=== PATIENT | female | born 1980 | race American Indian/Alaskan Native ===

== ENCOUNTER 2019-08-01 00:43 | Inpatient (IN) | payer MEDICARE ==
[2019-08-01 01:41] LABS: Basophils % (Auto) 0.6 % (0.0-1.8); Eosinophils # (Auto) 0.1 K/mm3 (0.0-0.4); Eosinophils % (Auto) 1.8 % (0.0-4.3); Lymphocytes % (Auto) 28.8 % (13.4-35.0); Mean Corpuscular HGB Conc 33 % (30-34); Mean Corpuscular Volume 84 fl (79-97); Monocytes # (Auto) 0.6 K/mm3 (0.0-0.8); Monocytes % (Auto) 8.1 % (0.0-7.3); Platelet Count 267 K/mm3 (140-440); Red Blood Count 2.16 M/mm3 (3.65-5.03); Red Cell Distribution Width 18.7 % (13.2-15.2)
[2019-08-01 01:52] LABS: Hematocrit 18.1 % (30.3-42.9); Hemoglobin 5.9 gm/dl (10.1-14.3)
--- NOTE | 2019-08-01 03:31 | Emergency Department Report ---
ED Female HPI - General Chief complaint: Vaginal Bleeding Stated complaint: GENERAL ILLNESS Time Seen by Provider: 08/01/19 03:04 Source: patient Mode of arrival: Ambulatory Limitations: No Limitations - History of Present Illness Initial comments: This is a 39-year-old -[place] female who presents to the emergency room with menorrhagia for 2 weeks. Patient reports symptoms started 07/19/2019. Past history of insulin-dependent diabetes2, anemia, hypertension, neuropathy, iron deficiency anemia, and hypothyroidism. Primary care doctor Hermila. Patient states she had an appointment with a new onion farmer last week which was rescheduled [place]. Reports feeling lightheaded. Denies abdominal pain MD Complaint: vaginal bleeding Onset/Timin -: week(s) Severity scale (0 -10): 0 Are you Now?: No Last Menstrual Period: 07/19/19 EDC: 04/24/20 Associated Symptoms: denies other symptoms - Related Data Home Medications Medication Instructions Recorded Confirmed Last Taken Atorvastatin (Nf) [Lipitor (Nf)] 20 mg PO QDAY 05/04/13 05/04/13 05/04/13 Levothyroxine [Synthroid] 125 mcg PO QAM 05/04/13 05/04/13 05/04/13 Propranolol LA [Inderal LA] 120 mg PO QDAY 05/04/13 05/04/13 05/04/13 lisinopriL [Zestril] 20 mg PO QDAY 05/04/13 05/04/13 05/04/13 Previous Rx's Medication Instructions Recorded Last Taken Type Insulin Aspart (Nf) [NovoLOG 100 8 unit SUB-Q TID #1 vial 05/04/13 Unknown Rx UNITS/ML VIAL] Insulin Glargine,Hum.rec.anlog 35 unit SUB-Q QHS #30 ml 05/04/13 Unknown Rx [Lantus Solostar] Syrge-Ndl,Ins 0.3 ml Half Hitesh 1 each MC TID #1 box 05/04/13 Unknown Rx [Insulin Syringe] Allergies Allergy/AdvReac Type Severity Reaction Status Date / Time No Known Allergies Allergy Unverified 07/05/15 09:50 ED Review of Systems ROS: Stated complaint: GENERAL ILLNESS Other details as noted in HPI Constitutional: denies: chills, fever Respiratory: denies: cough, shortness of breath, wheezing Cardiovascular: denies: chest pain, palpitations Gastrointestinal: denies: abdominal pain, nausea, diarrhea Genitourinary: abnormal menses. denies: urgency, dysuria, discharge Musculoskeletal: denies: back pain, joint swelling, arthralgia Skin: denies: rash, lesions Neurological: denies: headache, weakness, paresthesias Psychiatric: denies: anxiety, depression ED Past Medical Hx - Past Medical History Previous Medical History?: Yes Hx Hypertension: Yes Hx Diabetes: Yes - Surgical History Past Surgical History?: Yes Additional Surgical History: thyroidectomy - Social History Smoking Status: Never Smoker Substance Use Type: None - Medications Home Medications: Home Medications Medication Instructions Recorded Confirmed Last Taken Type Atorvastatin (Nf) [Lipitor (Nf)] 20 mg PO QDAY 05/04/13 05/04/13 05/04/13 History Insulin Aspart (Nf) [NovoLOG 100 8 unit SUB-Q TID #1 vial 05/04/13 Unknown Rx UNITS/ML VIAL] Insulin Glargine,Hum.rec.anlog 35 unit SUB-Q QHS #30 ml 05/04/13 Unknown Rx [Lantus Solostar] Levothyroxine [Synthroid] 125 mcg PO QAM 05/04/13 05/04/13 05/04/13 History Propranolol LA [Inderal LA] 120 mg PO QDAY 05/04/13 05/04/13 05/04/13 History Syrge-Ndl,Ins 0.3 ml Half Hitesh 1 each MC TID #1 box 05/04/13 Unknown Rx [Insulin Syringe] lisinopriL [Zestril] 20 mg PO QDAY 05/04/13 05/04/13 05/04/13 History ED Physical Exam - General Limitations: No Limitations General appearance: alert, in no apparent distress, obese - Respiratory Respiratory exam: Present: normal lung sounds bilaterally. Absent: respiratory distress - Cardiovascular Cardiovascular Exam: Present: regular rate, normal rhythm. Absent: systolic murmur, diastolic murmur, rubs, gallop - GI/Abdominal GI/Abdominal exam: Present: soft, normal bowel sounds. Absent: distended, tenderness, guarding, rebound, rigid - Neurological Exam Neurological exam: Present: alert, oriented X3 - Psychiatric Psychiatric exam: Present: normal affect, normal mood - Skin Skin exam: Present: warm, dry, intact, normal color. Absent: rash ED Course Vital Signs 08/01/19 08/01/19 00:56 06:19 Temperature 98.2 F Pulse Rate 85 Respiratory 18 18 Rate Blood Pressure 146/80 O2 Sat by Pulse 100 100 Oximetry - Reevaluation(s) Reevaluation #1: 08/01/19 03:[address] Noble regarding anemia and menorrhagia. Request pelvic ultrasound and consult with hospitalist. Suggest a transfusion for anemia. Possible and consult if admitted through medicine. 08/01/19 06:[address] Rooney who agreed to admit patient with [facility] consult to [facility]. ED Medical Decision Making - Lab Data Result diagrams: 08/01/19 01:00 08/01/19 03:59 Lab Results 08/01/19 08/01/19 08/01/19 Range/Units 01:00 01:00 01:00 WBC 7.0 (4.5-11.0) K/mm3 RBC 2.16 L (3.65-5.03) M/mm3 Hgb 5.9 L* (10.1-14.3) gm/dl Hct 18.1 L* (30.3-42.9) % MCV 84 (79-97) fl MCH 27 L (28-32) pg MCHC 33 (30-34) % RDW 18.7 H (13.2-15.2) % Plt Count 267 (140-440) K/mm3 Lymph % (Auto) 28.8 (13.4-35.0) % Stephens % (Auto) 8.1 H (0.0-7.3) % Eos % (Auto) 1.8 (0.0-4.3) % Baso % (Auto) 0.6 (0.0-1.8) % Lymph # 2.0 (1.2-5.4) K/mm3 Stephens # 0.6 (0.0-0.8) K/mm3 Eos # 0.1 (0.0-0.4) K/mm3 Baso # 0.0 (0.0-0.1) K/mm3 Seg Neutrophils % 60.7 (40.0-70.0) % Seg Neutrophils # 4.3 (1.8-7.7) K/mm3 Sodium (137-145) mmol/L Potassium (3.6-5.0) mmol/L Chloride (98-107) mmol/L Carbon Dioxide (22-30) mmol/L Anion Gap mmol/L BUN (7-17) mg/dL Creatinine (0.7-1.2) mg/dL Estimated GFR ml/min BUN/Creatinine Ratio % Glucose (65-100) mg/dL Calcium (8.4-10.2) mg/dL HCG, Qual Negative (Negative) HCG, Quant < 2 (0-4) mIU/mL Urine Color (Yellow) Urine Turbidity (Clear) Urine pH (5.0-7.0) Ur Specific [place] (1.003-1.030) Urine Protein (Negative) mg/dL Urine Glucose (UA) (Negative) mg/dL Urine Ketones (Negative) mg/dL Urine Blood (Negative) Urine Nitrite (Negative) Urine Bilirubin (Negative) Urine Urobilinogen (<2.0) mg/dL Ur Leukocyte Esterase (Negative) Urine WBC (Auto) (0.0-6.0) /HPF Urine RBC (Auto) (0.0-6.0) /HPF U Epithel Cells (Auto) (0-13.0) /HPF Urine Bacteria (Auto) (Negative) /HPF Urine Mucus /HPF Blood Type 08/01/19 08/01/19 08/01/19 Range/Units 01:00 03:59 Unknown WBC (4.5-11.0) K/mm3 RBC (3.65-5.03) M/mm3 Hgb (10.1-14.3) gm/dl Hct (30.3-42.9) % MCV (79-97) fl MCH (28-32) pg MCHC (30-34) % RDW (13.2-15.2) % Plt Count (140-440) K/mm3 Lymph % (Auto) (13.4-35.0) % Stephens % (Auto) (0.0-7.3) % Eos % (Auto) (0.0-4.3) % Baso % (Auto) (0.0-1.8) % Lymph # (1.2-5.4) K/mm3 Stephens # (0.0-0.8) K/mm3 Eos # (0.0-0.4) K/mm3 Baso # (0.0-0.1) K/mm3 Seg Neutrophils % (40.0-70.0) % Seg Neutrophils # (1.8-7.7) K/mm3 Sodium 138 (137-145) mmol/L Potassium 3.8 (3.6-5.0) mmol/L Chloride 99.4 (98-107) mmol/L Carbon Dioxide 23 (22-30) mmol/L Anion Gap 19 mmol/L BUN 10 (7-17) mg/dL Creatinine 0.8 (0.7-1.2) mg/dL Estimated GFR > 60 ml/min BUN/Creatinine Ratio 13 % Glucose 181 H (65-100) mg/dL Calcium 8.9 (8.4-10.2) mg/dL HCG, Qual (Negative) HCG, Quant (0-4) mIU/mL Urine Color Red (Yellow) Urine Turbidity Slightly-cloudy (Clear) Urine pH 6.0 (5.0-7.0) Ur Specific [place] 1.005 (1.003-1.030) Urine Protein 100 mg/dl (Negative) mg/dL Urine Glucose (UA) Neg (Negative) mg/dL Urine Ketones Tr (Negative) mg/dL Urine Blood Mod (Negative) Urine Nitrite Neg (Negative) Urine Bilirubin Neg (Negative) Urine Urobilinogen < 2.0 (<2.0) mg/dL Ur Leukocyte Esterase Sm (Negative) Urine WBC (Auto) 5.0 (0.0-6.0) /HPF Urine RBC (Auto) 96.0 (0.0-6.0) /HPF U Epithel Cells (Auto) 3.0 (0-13.0) /HPF Urine Bacteria (Auto) 1+ (Negative) /HPF Urine Mucus Few /HPF Blood Type O POSITIVE - Radiology Data Radiology results: report reviewed CLINICAL DATA: menorrhagia TECHNICAL DATA: Ultrasound, pelvic (nonobstetric), real-time with image documentation; transabdominal and transvaginal imaging with Doppler was performed. Doppler imaging demonstrates normal arterial and venous flow. FINDINGS: The uterus demonstrates multiple uterine fibroids present largest measuring 3.1 cm. Endometrium is thickened measuring 1.4 cm The right and left ovaries are of symmetric size and echogenicity. Doppler imaging is identified in both adnexa. There are no ovarian or adnexal masses. Multiple right ovarian cyst are present largest measuring 2.5 cm There is no significant quantity of free fluid dependently within the pelvis. IMPRESSION: 1. Multiple uterine fibroids 2. Ovarian cyst on the right GUIDELINES FOR IMAGING OF OVARIAN--ADNEXAL CYST: WOMEN OF REPRODUCTIVE AGE: 1. Cysts <=3 cm: Normal physiologic findings; at the discretion of the interpre ting physician whether or not to describe them in the imaging report; do not need follow-up. 2. Cysts >3 and <=5 cm: Should be described in the imaging report with a statement that they are almost certainly benign; do not need follow-up. 3. Cysts >5 and <=7 cm: Should be described in the imaging report with a statement that they are almost certainly benign; yearly follow-up with US recommended. 4. Cysts >7 cm: Since these may be difficult to assess completely with US, further imaging with magnetic resonance (MR) or surgical evaluation should be considered. POSTMENOPAUSAL WOMEN: 1. Cysts <=1 cm: Are clinically inconsequential; at the discretion of the interpreting physician whether or not to describe them in the imaging report; do not need follow-up. 2. Cysts >1 and <=7 cm: Should be described in the imaging report with statement that they are almost certainly benign; yearly follow-up, at least initially, with US recommended. Some practices may opt to increase the lower size threshold for follow-up from 1 cm to as high as 3 cm. One may opt to continue follow-up annually or to decrease the frequency of follow-up once stability or decrease in size has been confirmed. Cysts in the larger end of this range should still generally be followed on a regular basis. 3. Cysts >7 cm: Since these may be difficult to assess completely with US, further imaging with MR or surgical evaluation should be considered. - Medical Decision Making Patient was examined by me. Vitals are stable. Nontender on abdominal exam. Ultrasound of pelvic pain and labs obtained. Anemia findings on labs. Consulted attending. IV site obtained an order 1 unit of red blood cells. Ultrasound dictated by radiologist with the following findings Multiple uterine fibroids. Ovarian cyst on the right. Consulted [facility] and hospitalists. Hospitalists agreed to admit patient to the [facility] with consult to [facility]. Critical care attestation.: If time is entered above; I have spent that time in minutes in the direct care of this critically ill patient, excluding procedure time. ED Disposition Clinical Impression: Menorrhagia Qualifiers: Menorrahagia type: with onset of menstrual periods Qualified Code(s): N92.2 - Excessive menstruation at puberty Uterine fibroid Qualifiers: Uterine leiomyoma location: unspecified location Qualified Code(s): D25.9 - Leiomyoma of uterus, unspecified Anemia Qualifiers: Anemia type: unspecified type Qualified Code(s): D64.9 - Anemia, unspecified Disposition: -09 OP ADMIT IP TO THIS HOSP Is pt being admited?: Yes Condition: Stable Referrals: PRIMARY CARE, [Primary Care Provider] - 3-5 Days
[2019-08-01 04:30] LABS: BUN/Creatinine Ratio 13; Blood Urea Nitrogen 10 mg/dL (7-17); Calcium 8.9 mg/dL (8.4-10.2); Hemolysis Index 2
[2019-08-01 04:30] LABS: Bacteria,Urine 1+ /HPF (Negative); Bilirubin,Urine NEG (Negative); Blood,Urine MOD (Negative); Color,Urine Red (Yellow); Mucus,Urine FEW /HPF; Urobilinogen,Urine < 2.0 mg/dL (<2.0)
[2019-08-01] MEDS ORDERED: SODIUM CHLORIDE 0.9% 500 ML 500 ML IV ONE ×2 (05:57→10:00)
--- NOTE | 2019-08-01 06:08 | Ultrasound Report ---
CLINICAL DATA: menorrhagia TECHNICAL DATA: Ultrasound, pelvic (nonobstetric), real-time with image documentation; transabdominal and transvagina l imaging with Doppler was performed. Doppler imaging demonstrates normal arterial and venous flow. FINDINGS: The uterus demonstrates multiple uterine fibroids present largest measuring 3.1 cm. Endometrium is th ickened measuring 1.4 cm The right and left ovaries are of symmetric size and echogenicity. Doppler imaging is identified in both adnexa. There are no ovarian or adnexal masses. Multiple right ovarian cyst are present largest measuring 2.5 cm There is no significant quantity of free fluid dependently within the pelvis. IMPRESSION: 1. Multiple uterine fibroids 2. Ovarian cyst on the right WOMEN OF REPRODUCTIVE AGE: 1. Cysts 3 cm: Normal physiologic findings; at the discretion of the interpreting physician whether o r not to describe them in the imaging report; do not need follow-up. 2. Cysts >3 and 5 cm: Should be described in the imaging report with a statement that they are almost certainly benign; do not need follow-up. 3. Cysts >5 and 7 cm: Should be described in the imaging report with a statement that they are almost certainly benign; yearly follow-up with US recommended. 4. Cysts >7 cm: Since these may be difficult to assess completely with US, further imaging with magne tic resonance (MR) or surgical evaluation should be considered. POSTMENOPAUSAL WOMEN: 1. Cysts 1 cm: Are clinically inconsequential; at the discretion of the interpreting physician whethe r or not to describe them in the imaging report; do not need follow-up. 2. Cysts >1 and 7 cm: Should be described in the imaging report with statement that they are almost c ertainly benign; yearly follow-up, at least initially, with US recommended. Some practices may opt to increase the lower size threshold for follow-up from 1 cm to as high as 3 cm. One may opt to continu e follow-up annually or to decrease the frequency of follow-up once stability or decrease in size has been confirmed. Cysts in the larger end of this range should still generally be followed on a regula r basis. 3. Cysts >7 cm: Since these may be difficult to assess completely with US, further imaging with MR or surgical evaluation should be considered.. Signer Name: Andrea Perez MD Signed: 08/01/2019 6:03 AM Workstation Name: [id number]
--- NOTE | 2019-08-01 06:09 | Ultrasound Report ---
CLINICAL DATA: menorrhagia TECHNICAL DATA: Ultrasound, pelvic (nonobstetric), real-time with image documentation; transabdominal and transvagina l imaging with Doppler was performed. Doppler imaging demonstrates normal arterial and venous flow. FINDINGS: The uterus demonstrates multiple uterine fibroids present largest measuring 3.1 cm. Endometrium is th ickened measuring 1.4 cm The right and left ovaries are of symmetric size and echogenicity. Doppler imaging is identified in both adnexa. There are no ovarian or adnexal masses. Multiple right ovarian cyst are present largest measuring 2.5 cm There is no significant quantity of free fluid dependently within the pelvis. IMPRESSION: 1. Multiple uterine fibroids 2. Ovarian cyst on the right GUIDELINES FOR IMAGING OF OVARIAN--ADNEXAL CYST: WOMEN OF REPRODUCTIVE AGE: 1. Cysts <=3 cm: Normal physiologic findings; at the discretion of the interpreting physician whether or not to describe them in the imaging report; do not need follow-up. 2. Cysts >3 and <=5 cm: Should be described in the imaging report with a statement that they are almo st certainly benign; do not need follow-up. 3. Cysts >5 and <=7 cm: Should be described in the imaging report with a statement that they are almo st certainly benign; yearly follow-up with US recommended. 4. Cysts >7 cm: Since these may be difficult to assess completely with US, further imaging with magne tic resonance (MR) or surgical evaluation should be considered. POSTMENOPAUSAL WOMEN: 1. Cysts <=1 cm: Are clinically inconsequential; at the discretion of the interpreting physician whet her or not to describe them in the imaging report; do not need follow-up. 2. Cysts >1 and <=7 cm: Should be described in the imaging report with statement that they are almost certainly benign; yearly follow-up, at least initially, with US recommended. Some practices may opt to increase the lower size threshold for follow-up from 1 cm to as high as 3 cm. One may opt to annia nue follow-up annually or to decrease the frequency of follow-up once stability or decrease in size h as been confirmed. Cysts in the larger end of this range should still generally be followed on a regu lar basis. 3. Cysts >7 cm: Since these may be difficult to assess completely with US, further imaging with MR or surgical evaluation should be considered. Signer Name: Andrea Perez MD Signed: 08/01/2019 6:04 AM Workstation Name: [id number]
[2019-08-01] MEDS ORDERED: ONDANSETRON 4 MG/2 ML INJ IV PRN (06:24)
--- NOTE | 2019-08-01 09:59 | Consultation ---
History of Present Illness Consult date: 08/01/19 Requesting physician: FRIDA LUGO Reason for consult: menorrhagia History of present illness: Pt is a 39 year old female nulligravida LMP 07/19/19 who presents with heavy vaginal bleeding for 13 days as well as lightheadedness and fatigue. She reports that she has heavy menses, but she had no menses in June prior to the current prolonged menses. She has not been evaluated by a office supervisor in over 10 years, and has not had a pap smear during that interval. The patient does not desire future fertility. Past History Past Medical History: hypertension, diabetes (insulin dependent with neuropathy ), high cholesterol, thyroid disease (hypothyroidism ), hematologic disorders (anemia, non-compliant with iron supplementation ) Past Surgical History: thyroid (ablation ) Family/Genetic History: heart disease Social history: no significant social history - Obstetrical History : 0 Medications and Allergies Allergies Allergy/AdvReac Type Severity Reaction Status Date / Time No Known Allergies Allergy Verified 08/01/19 06:43 Home Medications Medication Instructions Recorded Confirmed Last Taken Type Atorvastatin (Nf) [Lipitor (Nf)] 20 mg PO QDAY 05/04/13 08/01/19 05/04/13 History Levothyroxine [Synthroid] 137 mcg PO QAM 05/04/13 08/01/19 05/04/13 History Basaglar Kwikpen U-100 50 unit SQ DAILY 08/01/19 08/01/19 Unknown History Ferrous Sulfate 325 mg PO BID 08/01/19 08/01/19 Unknown History Gabapentin 300 mg PO BID 08/01/19 08/01/19 Unknown History Lisinopril/Hydrochlorothiazide 1 tab PO DAILY 08/01/19 08/01/19 Unknown History Metformin HCl 1,000 mg PO BID 08/01/19 08/01/19 Unknown History NovoLOG 100 UNITS/ML VIAL 15 unit SQ TID 08/01/19 08/01/19 Unknown History Propranolol 120 mg PO DAILY 08/01/19 08/01/19 Unknown History Active Meds: Active Medications Acetaminophen (Tylenol) 650 mg PO Q4H PRN PRN Reason: Pain MILD(1-3)/Fever >100.5/MAGANA Ondansetron HCl (Zofran) 4 mg IV Q8H PRN PRN Reason: Nausea And Vomiting Sodium Chloride (Sodium Chloride Flush Syringe 10 Ml) 10 ml IV BID FRANKO Sodium Chloride (Sodium Chloride Flush Syringe 10 Ml) 10 ml IV PRN PRN PRN Reason: LINE FLUSH Review of Systems All systems: negative - Vital Signs Vital signs: Vital Signs Temp Pulse Resp BP Pulse Ox 98.2 F 85 18 146/80 100 08/01/19 00:56 08/01/19 00:56 08/01/19 00:56 08/01/19 00:56 08/01/19 00:56 Temp Pulse Resp BP Pulse Ox 98.2 F 78 16 131/67 100 08/01/19 00:56 08/01/19 06:36 08/01/19 06:36 08/01/19 06:36 08/01/19 06:36 - Physical Exam Breasts: Positive: deferred Cardiovascular: Regular rate Lungs: Positive: Clear to auscultation Abdomen: Positive: soft (obese) Vulva: both: normal Vagina: Positive: other (moderate blood in vaginal vault with some dime sized clots ) Cervix: Positive: other (difficult to visualize secondary to bleeding ) Uterus: Positive: normal size Extremities: Positive: normal Results Result Diagrams: 08/01/19 01:00 08/01/19 03:59 Abnormal lab results 08/01/19 08/01/19 08/01/19 Range/Units 01:00 03:59 06:45 RBC 2.16 L (3.65-5.03) M/mm3 Hgb 5.9 L* (10.1-14.3) gm/dl Hct 18.1 L* (30.3-42.9) % MCH 27 L (28-32) pg RDW 18.7 H (13.2-15.2) % [place] % (Auto) 8.1 H (0.0-7.3) % Glucose 181 H (65-100) mg/dL Crossmatch See Detail All other labs normal. Ultrasound: report reviewed Assessment and Plan A: Symptomatic Anemia Dysfunctional Uterine Bleeding Fibroid Uterus Undesired Fertility Insulin-Dependent Diabetes Mellitus Hypothyroidism Hypercholesterolemia P: Transfuse 2 units PRBCs and recheck hemoglobin and hematocrit IV Premarin 25mg IV Q6H until bleeding is minimal Scheduled outpatient follow up in the next 2 weeks for pap smear, endometrial biopsy, and begin hysterectomy planning.
[2019-08-01] MEDS ORDERED: DEXTROSE 50% IN WATER (25GM) 50 ML SYRINGE IV PRN (11:17)
[2019-08-01] MEDS ORDERED: INSULIN LISPRO 100 UNIT/ML SUB-Q SCH (11:30)
[2019-08-01] MEDS: INSULIN LISPRO 100 UNIT/ML SUB-Q SCH ×3 (11:37→22:31)
[2019-08-01] MEDS: ACETAMINOPHEN 325 MG TAB PO PRN (11:39)
[2019-08-01] MEDS ORDERED: WATER FOR INJ Sterile (PF) 10 ML ONE ×2 (11:54→17:20)
[2019-08-01] MEDS: ESTROGENS, CONJUGATED 25 MG INJ IV SCH ×2 (11:55→18:38)
--- NOTE | 2019-08-01 12:55 | Consultation ---
History of Present Illness - Reason for Consult Consult date: 08/01/19 Diabetes Requesting physician: MIKE HUITRON - History of Present Illness 39-year-old female with obesity hypoventilation syndrome, diabetes mellitus, consult placed by Dr. Wiley Huitron for diabetes mellitus. Patient seen and evaluated in her room. Patient denies fever, chills, chest pain, palpitations, shortness of breath, polydipsia, polyuria, or polyphagia. No reported nursing events. Past History Past Medical History: diabetes, hypertension Past Surgical History: thyroidectomy Social history: single Family history: diabetes, hypertension Medications and Allergies Allergies Allergy/AdvReac Type Severity Reaction Status Date / Time No Known Allergies Allergy Verified 08/01/19 06:43 Home Medications Medication Instructions Recorded Confirmed Last Taken Type Atorvastatin (Nf) [Lipitor (Nf)] 20 mg PO QDAY 05/04/13 08/01/19 05/04/13 History Levothyroxine [Synthroid] 137 mcg PO QAM 05/04/13 08/01/19 05/04/13 History Basaglar Kwikpen U-100 50 unit SQ DAILY 08/01/19 08/01/19 Unknown History Ferrous Sulfate 325 mg PO BID 08/01/19 08/01/19 Unknown History Gabapentin 300 mg PO BID 08/01/19 08/01/19 Unknown History Lisinopril/Hydrochlorothiazide 1 tab PO DAILY 08/01/19 08/01/19 Unknown History Metformin HCl 1,000 mg PO BID 08/01/19 08/01/19 Unknown History NovoLOG 100 UNITS/ML VIAL 15 unit SQ TID 08/01/19 08/01/19 Unknown History Propranolol 120 mg PO DAILY 08/01/19 08/01/19 Unknown History Active Meds: Active Medications Acetaminophen (Tylenol) 650 mg PO Q4H PRN PRN Reason: Pain MILD(1-3)/Fever >100.5/MAGANA Last Admin: 08/01/19 11:39 Dose: 650 mg Documented by: Dextrose (D50w (25gm) Syringe) 50 ml IV Q30MIN PRN; Protocol PRN Reason: Hypoglycemia Insulin Human Lispro (Humalog) 0 unit SUB-Q ACHS [facility]; Protocol Last Admin: 08/01/19 11:37 Dose: 3 unit Documented by: Ondansetron HCl (Zofran) 4 mg IV Q8H PRN PRN Reason: Nausea And Vomiting Sodium Chloride (Sodium Chloride Flush Syringe 10 Ml) 10 ml IV BID FRANKO Sodium Chloride (Sodium Chloride Flush Syringe 10 Ml) 10 ml IV PRN PRN PRN Reason: LINE FLUSH Review of Systems Constitutional: no weight loss, no fever Ears, nose, mouth and throat: no ear pain, no tinnitis, no nose pain, no nasal discharge Cardiovascular: no chest pain, no palpitations, no rapid/irregular heart beat, no syncope Respiratory: no cough, no cough with sputum, no hemoptysis, no dyspnea on exertion Gastrointestinal: no nausea, no diarrhea, no constipation, no coffee ground emesis Genitourinary Female: no pelvic pain, no flank pain Rectal: no pain, no incontinence, no bleeding Musculoskeletal: no neck stiffness, no shooting arm pain, no arm numbness/tingling, no shooting leg pain, no leg numbness/tingling Integumentary: no rash, no pruritis, no sores, no wounds, no boils Neurological: no transient paralysis, no parathesias, no numbness, no tingling, no seizures, no syncope Psychiatric: no anxiety, no change in sleep habits, no sleep disturbances, no hypersomnia, no change in appetite Endocrine: no cold intolerance, no heat intolerance, no excessive thirst, no polyuria, no nocturia, no flushing, no weight change Hematologic/Lymphatic: no easy bruising, no lymphadenopathy Allergic/Immunologic: no allergic rhinitis, no wheezing, no persistent infections, no anaphylaxis Exam - Constitutional Vitals: Temp Pulse Resp BP Pulse Ox 97.7 F 71 16 139/81 100 08/01/19 10:10 08/01/19 10:10 08/01/19 10:10 08/01/19 10:10 08/01/19 10:10 General appearance: Present: mild distress - EENT Eyes: Present: PERRL ENT: hearing intact, clear oral mucosa - Neck Neck: Present: supple, normal ROM - Respiratory Respiratory effort: normal Respiratory: bilateral: CTA - Cardiovascular Heart Sounds: Present: S1 & S2. Absent: rub, click - Extremities Extremities: pulses symmetrical, No edema Peripheral Pulses: within normal limits - Abdominal General gastrointestinal: Present: soft, non-tender, non-distended, normal bowel sounds Female genitourinary: Present: normal - Integumentary Integumentary: Present: clear, warm, dry - Musculoskeletal Musculoskeletal: gait normal, strength equal bilaterally - Psychiatric Psychiatric: appropriate mood/affect, intact judgment & insight - Neurologic Neurologic: CNII-XII intact, moves all extremities Results - Labs CBC & Chem 7: 08/01/19 01:00 08/01/19 03:59 Labs: Abnormal lab results 08/01/19 08/01/19 08/01/19 Range/Units 01:00 03:59 06:45 RBC 2.16 L (3.65-5.03) M/mm3 Hgb 5.9 L* (10.1-14.3) gm/dl Hct 18.1 L* (30.3-42.9) % MCH 27 L (28-32) pg RDW 18.7 H (13.2-15.2) % Crosby % (Auto) 8.1 H (0.0-7.3) % Glucose 181 H (65-100) mg/dL POC Glucose (70-105) Crossmatch See Detail 08/01/19 Range/Units 10:54 RBC (3.65-5.03) M/mm3 Hgb (10.1-14.3) gm/dl Hct (30.3-42.9) % MCH (28-32) pg RDW (13.2-15.2) % Crosby % (Auto) (0.0-7.3) % Glucose (65-100) mg/dL POC Glucose 298 H (70-105) Crossmatch Assessment and Plan - Patient Problems (1) Diabetes Current Visit: Yes Status: Acute Plan to address problem: ADA diet, insulin sliding scale, Accu-Chek, hypoglycemia protocol, hold metformin while hospitalized. Resume prehospital antihyperglycemic regimen upon discharge. Follow-up with PCP within 3 to 5 days of discharge for re evaluation.
[2019-08-01 23:08] LABS: Hematocrit 23.8 % (30.3-42.9); Hemoglobin 8.1 gm/dl (10.1-14.3)
[2019-08-02] MEDS: ACETAMINOPHEN 325 MG TAB PO PRN (05:07)
[2019-08-02] MEDS: INSULIN LISPRO 100 UNIT/ML SUB-Q SCH ×3 (08:14→16:10)
--- NOTE | 2019-08-02 08:34 | Event Note ---
Date: 08/02/19 Cleared for discharge Patient maybe discharged on 1. Glimepiride 2 mg once a day 2. Metformin 500 mg twice a day
[2019-08-02] MEDS ORDERED: GLIMEPIRIDE 2 MG TAB PO SCH (09:00)
--- NOTE | 2019-08-02 10:33 | Progress Note ---
Assessment and Plan A/P Menorrhagia, DUB A: Symptomatic Anemia Dysfunctional Uterine Bleeding Fibroid Uterus Undesired Fertility Insulin-Dependent Diabetes Mellitus Hypothyroidism Hypercholesterolemia P: Transfuse 2 units PRBCs and recheck hemoglobin and hematocrit IV Premarin 25mg IV Q6H until bleeding is minimal Scheduled outpatient follow up in the next 2 weeks for pap smear, endometrial biopsy, and begin hysterectomy planning. Appreciate Medicine consult Discharged home today possible Subjective - Subjective Date of service: 08/02/19 Principal diagnosis: menorrhagia, fibroids Patient reports: appetite normal, voiding normally, pain well controlled, flatus, ambulating normally Objective - Vital Signs Latest vital signs: Vital Signs Temp Pulse Resp BP BP Pulse Ox 08/02/19 08:23 97.7 F 82 18 140/63 98 08/02/19 05:01 98.6 F 88 20 118/67 98 08/02/19 01:09 98.3 F 81 18 127/71 99 08/01/19 21:07 97.7 F 76 16 109/63 100 08/01/19 18:35 97.7 F 74 16 124/73 100 08/01/19 17:16 97.8 F 69 18 135/76 100 08/01/19 16:09 97.7 F 77 16 131/69 100 08/01/19 16:03 97.6 F 68 18 125/72 100 08/01/19 14:41 97.7 F 67 18 131/67 100 08/01/19 14:11 97.7 F 77 16 119/66 100 08/01/19 13:41 97.6 F 76 18 119/68 100 08/01/19 13:26 97.6 F 66 16 114/67 08/01/19 12:55 97.6 F 69 16 115/89 Intake and Output 08/01/19 08/02/19 08/02/19 23:59 07:59 15:59 Intake Total 980 120 Output Total 1 Balance 980 119 Intake: Intake, Free Water 480 120 Blood Product 250 Leukoreduced Red Blood 250 Cells Unit [id number] Other 250 Leukoreduced Red Blood 250 Cells Unit [id number] Output: Pad Count 1 Other: Voiding Method Toilet # Voids Void 1 1 - Exam Breasts: Present: normal Cardiovascular: Present: Regular rate, Normal S1 Lungs: Present: Clear to auscultation, Normal air movement Abdomen: Present: normal appearance, soft, normal bowel sounds. Absent: distention, tenderness, guarding Vulva: both: normal Uterus: Present: normal, firm, fundal height below umbilicus. Absent: bogginess, tenderness Extremities: Present: normal Deep Tendon Reflex Grade: Normal +2 - Labs Labs: Abnormal lab results 08/01/19 08/01/19 08/01/19 Range/Units 01:00 06:45 10:54 Hgb (10.1-14.3) gm/dl Hct (30.3-42.9) % POC Glucose 298 H (70-105) Hemoglobin A1c 6.5 H (4-6) % Crossmatch See Detail 08/01/19 08/01/19 08/01/19 Range/Units 14:03 16:34 22:23 Hgb (10.1-14.3) gm/dl Hct (30.3-42.9) % POC Glucose 264 H 212 H 325 H (70-105) Hemoglobin A1c (4-6) % Crossmatch 08/01/19 08/02/19 Range/Units 22:53 08:14 Hgb 8.1 L (10.1-14.3) gm/dl Hct 23.8 L (30.3-42.9) % POC Glucose 309 H (70-105) Hemoglobin A1c (4-6) % Crossmatch
--- NOTE | 2019-08-02 13:18 | Progress Note ---
Assessment and Plan - Patient Problems (1) Symptomatic anemia Current Visit: Yes Status: Acute Plan to address problem: Was transfused PRBC H/H improved from 5.9/18.1 to 8.1/23.8 F/u as outpatient with obgyn (2) Uncontrolled diabetes mellitus Current Visit: Yes Status: Chronic Qualifiers: Diabetes mellitus type: type 2 Plan to address problem: Patient to be discharged on Metformin 500 mg po bid and Glimepiride 2 mg po qd Subjective Date of service: 08/02/19 Principal diagnosis: menorrhagia, fibroids Interval history: Admitted for axte anemia Menorrhagia and uncontrolled Diabetes Objective - Constitutional Vitals: Vital Signs - 12hr 08/02/19 08/02/19 05:01 08:23 Temperature 98.6 F 97.7 F Pulse Rate 88 82 Respiratory 20 18 Rate Blood Pressure 118/67 140/63 O2 Sat by Pulse 98 98 Oximetry General appearance: Present: no acute distress, well-nourished - EENT Eyes: PERRL, EOM intact ENT: hearing intact, clear oral mucosa Ears: bilateral: normal - Neck Neck: supple, normal ROM - Respiratory Respiratory effort: normal Respiratory: bilateral: CTA - Breasts Breasts: normal - Cardiovascular Heart rate: 78 Rhythm: regular Heart Sounds: Present: S1 & S2. Absent: gallop, rub Extremities: pulses intact, No edema, normal color, Full ROM - Gastrointestinal General gastrointestinal: Present: soft, non-tender, non-distended, normal bowel sounds - Genitourinary Female genitourinary: normal - Integumentary Integumentary: clear, warm, dry - Musculoskeletal Musculoskeletal: 1, strength equal bilaterally - Neurologic Neurologic: moves all extremities - Psychiatric Psychiatric: memory intact, appropriate mood/affect, intact judgment & insight - Labs CBC & Chem 7: 08/01/19 22:53 08/01/19 03:59 Labs: Abnormal lab results 08/01/19 08/01/19 08/01/19 Range/Units 01:00 06:45 14:03 Hgb (10.1-14.3) gm/dl Hct (30.3-42.9) % POC Glucose 264 H (70-105) Hemoglobin A1c 6.5 H (4-6) % Crossmatch See Detail 08/01/19 08/01/19 08/01/19 Range/Units 16:34 22:23 22:53 Hgb 8.1 L (10.1-14.3) gm/dl Hct 23.8 L (30.3-42.9) % POC Glucose 212 H 325 H (70-105) Hemoglobin A1c (4-6) % Crossmatch 08/02/19 08/02/19 Range/Units 08:14 12:05 Hgb (10.1-14.3) gm/dl Hct (30.3-42.9) % POC Glucose 309 H 356 H (70-105) Hemoglobin A1c (4-6) % Crossmatch
[2019-08-02 16:17] VITALS: BP 139/80
== END 2019-08-02 17:41 | disposition home or self-care (01) | DRG 761 ==
LOC: ED 00:43 → OB 06:24 → OBSVTOIN 08-02 12:55
PROVIDERS: ADMIT Internal Medicine Geriatric Medicine; ATTEND Internal Medicine
PROC: 30233N1 Transfusion of Nonautologous Red Blood Cells into Peripheral Vein, Percutaneous Approach (ICD-10-PCS; principal; 2019-08-01)
DX: D25.9 Leiomyoma of uterus, unspecified (principal); N92.0 Excessive and frequent menstruation with regular cycle; D64.9 Anemia, unspecified; N93.8 Other specified abnormal uterine and vaginal bleeding; E03.9 Hypothyroidism, unspecified; E78.00 Pure hypercholesterolemia, unspecified; E11.40 Type 2 diabetes mellitus with diabetic neuropathy, unspecified; Z82.49 Family history of ischemic heart disease and other diseases of the circulatory system; Z83.3 Family history of diabetes mellitus; Z79.4 Long term (current) use of insulin; Z79.899 Other long term (current) drug therapy
CPT/HCPCS: 36415; 36430; 76830; 76856; 80048; 81001; 82962; 83036; 84702; 84703; 85014; 85018; 85025; 86850; 86900; 86901; 86920; G0378; J1410; J1815; J7040; P9016

== ENCOUNTER 2019-10-11 08:43 | Day surgery (SDC) | payer MEDICARE ==
--- NOTE | 2019-10-10 10:35 | Anesthesia Consultation ---
Anesthesia Consult and Med Hx Date of service: 10/11/19 - Airway Anesthetic Teeth Evaluation: Good ROM Head & Neck: Adequate Mental/Hyoid Distance: Adequate Mallampati Class: Class II Intubation Access Assessment: Good - Pre-Operative Health Status ASA Pre-Surgery Classification: ASA2 Proposed Anesthetic Plan: General - Pulmonary Hx Asthma: No (States she can climb two flights of stairs) COPD: No Hx Pneumonia: No - Cardiovascular System Hx Hypertension: Yes (x 21 years) - Central Nervous System Hx Psychiatric Problems: No - Endocrine Hx End Stage Renal Disease: No Hx Insulin Dependent Diabetes: Yes (Gets neuropathy when hypoglycemic) Hx Thyroid Disease: Yes Hx Hypothyroidism: Yes - Hematic Hx Anemia: Yes - Other Systems Hx Cancer: No
[2019-10-10 10:53] LABS: Basophils # (Auto) 0.1 K/mm3 (0.0-0.1); Basophils % (Auto) 0.9 % (0.0-1.8); Eosinophils # (Auto) 0.1 K/mm3 (0.0-0.4); Eosinophils % (Auto) 1.5 % (0.0-4.3); Hematocrit 32.4 % (30.3-42.9); Hemoglobin 10.3 gm/dl (10.1-14.3); Lymphocytes # (Auto) 1.3 K/mm3 (1.2-5.4); Lymphocytes % (Auto) 20.9 % (13.4-35.0); Mean Corpuscular HGB Conc 32 % (30-34); Mean Corpuscular Volume 80 fl (79-97); Monocytes # (Auto) 0.5 K/mm3 (0.0-0.8); Monocytes % (Auto) 7.9 % (0.0-7.3); Platelet Count 355 K/mm3 (140-440); Red Blood Count 4.04 M/mm3 (3.65-5.03); Red Cell Distribution Width 17.4 % (13.2-15.2)
[2019-10-10 11:01] LABS: BUN/Creatinine Ratio 13; Blood Urea Nitrogen 10 mg/dL (7-17); Calcium 9.5 mg/dL (8.4-10.2); Hemolysis Index 17
[2019-10-11] MEDS ORDERED: MIDAZOLAM 2 MG/2 ML INJ IV NR (09:00)
[2019-10-11] MEDS ORDERED: LACTATED RINGERS 1,000 ML IV SCH (09:00)
[2019-10-11] MEDS ORDERED: fentaNYL 100 MCG/2 ML INJ IV PRN (09:30)
[2019-10-11] MEDS ORDERED: ONDANSETRON 4 MG/2 ML INJ IV PRN (09:30)
[2019-10-11] MEDS ORDERED: propofoL 200 MG/20 ML VIAL IV ONE (10:02)
[2019-10-11] MEDS ORDERED: HYDROmorphone 1 MG/1 ML INJ ONE (10:02)
[2019-10-11] MEDS ORDERED: LIDOCAINE MPF (2%) 20 MG/1 ML VIAL 5 ML ONE (10:03)
[2019-10-11] MEDS ORDERED: SILVER NITRATE APPLICATOR 1 EA TP ONE ×3 (10:13→11:20)
[2019-10-11] MEDS ORDERED: SODIUM CHLORIDE 0.9% IRRIG SOLN 3000 ML IR ONE (11:01)
[2019-10-11] MEDS ORDERED: KETOROLAC 30 MG/1 ML INJ ONE (11:20)
[2019-10-11] MEDS ORDERED: ONDANSETRON 4 MG/2 ML INJ ONE (11:20)
[2019-10-11 12:20] VITALS: BP 136/87
--- NOTE | 2019-10-11 12:26 | Operative Report ---
Operative Report Operative Report: Date: 10/11/19 Preop: Menorrhagia and polypectomy Post op same Procedures: Dilatation and Curretage, Hysteroscpoy, and polypectomy Surgeon: Dr. Noble Anesthesia: General EBL: minimal Indications: This is a 39 yo G0 with heavy bleeding for several months. She was seen and examined and noted small fibroids and large polyp at cervix. Procedure: The patient was consented and seen in the preop suite. She was taken to operative suite, placed in a dorsal lithotomy position, and placed under General sedation. She was prepped and draped in the normal sterile fashion. Her bladder was drained wtiht the red wagner catheter which produced clear yellow urine . A bimanual exam was done and noted a small anteverted uterus, mobile. The cervix and vagina grossly normal with no obvious deformities nor masses. A weighted speculum was placed in the posterior aspect of the vagina and anterior lip grasped with the tenaculum. A LARGE POLYP GRASPED WITH SPONGE STICK AND TWISTED EASILY FOR REMOVAL. The uterus was sounded to 6cm. The cervix was dilated with Chris dilator and Zaira dilator. The hysteroscope was placed in uteus. Under direct visualization, the ostia were within normal limits. The endometrium fluffy with polyp visualized near cervix . The hysteroscope removed and a sharp curretage performed with e ndometrial currettings were obtained and placed on telfa pad. sent to pathology. All instruments removed with excellen hemostasis.
--- NOTE | 2019-10-11 16:29 | Anesthesia Day of Surgery ---
Anesthesia Day of Surgery - Day of Surgery Patient Examined: Yes Patient H&P Reviewed: Yes Patient is NPO: Yes Beta Blockers: Yes
--- NOTE | 2019-10-11 16:30 | Post Anesthesia Evaluation ---
- Post Anesthesia Evaluation Patient Participated: Yes Airway Patent: Yes Stable Respiratory Function: Yes Nausea/Vomiting: No Temp > 96.8F: Yes Pain Manageable: Yes Adequeate Hydration: Yes Anesthesia Complications: No Block Receding Appropriately: Not Applicable Patient on Ventilator: No
== END 2019-10-11 12:55 | disposition home or self-care (01) ==
LOC: OR 08:43
PROVIDERS: ATTEND Obstetrics & Gynecology
DX: N92.0 Excessive and frequent menstruation with regular cycle (principal); N71.9 Inflammatory disease of uterus, unspecified; N84.0 Polyp of corpus uteri; D64.9 Anemia, unspecified; E11.65 Type 2 diabetes mellitus with hyperglycemia; E11.42 Type 2 diabetes mellitus with diabetic polyneuropathy; I10 Essential (primary) hypertension; E03.9 Hypothyroidism, unspecified; Z98.890 Other specified postprocedural states; Z79.899 Other long term (current) drug therapy
CPT/HCPCS: 36415; 58558; 80048; 82962; 84703; 85025; 88305; 88312; A4217; J1170; J1885; J2250; J2405; J2704; J7120